=== PATIENT | female | born 1975 | race Caucasian/White ===

== ENCOUNTER 2021-12-04 07:19 | Outpatient (CLI) | payer BC, SELFPAY ==
--- NOTE | ~2021-12-04 | MM_ITS ---
EXAMINATION: MM screening lakeisha BI w marleny HISTORY: Screening TECHNIQUE: Craniocaudal and mediolateral oblique 3-D tomosynthesis images were obtained and synthetic 2-D images were generated. CAD analysis was submitted and interpreted. COMPARISON: No prior mammogram is available for comparison at this institution. BREAST PARENCHYMAL COMPOSITION: Breast composed of scattered areas of fibroglandular density FINDINGS: There is a mass in the lower outer quadrant of the right breast with central lucency. There are asymmetries in the upper outer quadrant of both breasts. There are no suspicious calcifications. IMPRESSION: 1. Right breast mass, lower outer quadrant. Bilateral breast asymmetries upper outer quadrants. 2. Additional mammographic views and possible breast ultrasound are recommended. BI-RADS Category 0: Incomplete: Needs additional imaging evaluation. Reviewed, dictated and finalized at location A. IMPRESSION: 1. Right breast mass, lower outer quadrant. Bilateral breast asymmetries upper outer quadrants. 2. Additional mammographic views and possible breast ultrasound are recommended . BI-RADS Category 0: Incomplete: Needs additional imaging evaluation.
== END 2021-12-04 07:20 | disposition home or self-care (01) ==
LOC: ANHIMG 07:22
PROVIDERS: PCP Internal Medicine; Visit Provider Internal Medicine
DX: Z12.31 Encounter for screening mammogram for malignant neoplasm of breast (principal); R92.8 Other abnormal and inconclusive findings on diagnostic imaging of breast
CPT/HCPCS: 77063; 77067

== ENCOUNTER 2021-12-10 13:04 | Outpatient (CLI) | payer BC, SELFPAY ==
--- NOTE | ~2021-12-10 | MMUS_ITS ---
EXAMINATION: MM diagnostic lakeisha BI w marleny, US breast BI limited HISTORY: Lower outer quadrant right breast mass and bilateral breast asymmetries in upper outer quadr ants were reported on 12/04/2021 bilateral screening mammogram TECHNIQUE: Additional 3-D tomosynthesis images of were performed and synthetic 2-D images were genera nikole. CAD analysis was submitted and interpreted. High resolution bilateral upper outer quadrant and l ower outer quadrant breast ultrasound was performed. COMPARISON: 12/04/2021 bilateral screening mammogram FINDINGS: MAMMOGRAPHIC FINDINGS: Right breast: Circumscribed 7.8 x 12.4 mm mass with halo sign is noted in the inner aspect of the posterior outer q uadrant of the right breast. The mammographic appearance suggests benign process, likely cyst. Left breast: No suspicious mass or architectural distortion is detected mammographically. ULTRASOUND: Right breast: 8:00 5 cm from nipple: 7 x 12 mm sonolucency consistent with cyst, corresponding to the benign-appear ing mammographic finding in the posterior lower outer quadrant of the right breast. Left breast: 2:30 o'clock 6 cm from nipple: There is an anti-parallel irregular hypoechoic lesion measuring up to 5.4 mm depth, 4.5 mm width. The irregular margins and antiparallel configuration are of concern. Nava lissy, there is apparent through transmission and posterior posterior which might suggest cyst. Ultraso und-guided aspiration attempt is recommended, with immediate ultrasound-guided biopsy if this does no t successfully resolve with aspiration. Two contiguous parallel hypoechoic lesions measuring up to 4.2 mm are noted at 3:30 o'clock, without internal vascularity or posterior shadowing, likely benign. IMPRESSION: 1. Mildly irregular anti-parallel sonolucent lesion with apparent through transmission at the left br east 2:00 position 6 cm from nipple 2. Ultrasound-guided aspiration is recommended at left breast 2:00 lesion 6 cm from nipple; if this d oes not successfully with resolved with aspiration, intermediate ultrasound-guided biopsy is recommen ded BI-RADS category 4, suspicious findings. Dr. Campoverde telephoned the report and ultrasound guided left breast aspiration and possible biopsy of le ft breast 2:00 6 cm from nipple on 12/10/[address] Dill. Reviewed, dictated and finalized at location A. IMPRESSION: 1. Mildly irregular anti-parallel sonolucent lesion with apparent through trans mission at the left breast 2:00 position 6 cm from nipple 2. Ultrasound-guided aspiration is recommended at left breast 2:00 lesion 6 cm from nipple; if this does not successfully with resolved with aspiration, inter mediate ultrasound-guided biopsy is recommended BI-RADS category 4, suspicious findings. Dr. Campoverde telephoned the report and ultrasound guided left breast aspiration and possible biopsy of left breast 2:00 6 cm from nipple on 12/10/2021 [address] Dill.
== END 2021-12-10 13:05 | disposition home or self-care (01) ==
LOC: ANHIMG 13:05
PROVIDERS: PCP Internal Medicine; Visit Provider Internal Medicine
DX: R92.8 Other abnormal and inconclusive findings on diagnostic imaging of breast (principal)
CPT/HCPCS: 76642; 77062; 77066; G0279

== ENCOUNTER 2021-12-18 09:58 | Outpatient (CLI) | payer BC, SELFPAY ==
--- NOTE | ~2021-12-18 | US_ITS ---
EXAMINATION: US breast cyst asp LT DATE: 12/18/2021 15:11 CDT INDICATION: Left breast mass identified on prior examination. Aspiration requested. TECHNIQUE: Survey imaging of the left breast was performed. The cyst(s) at the 2:30 position, 6 cm f rom the nipple was targeted for aspiration. The procedure and its risk and benefits were discussed w ith the patient. Risks included but were not limited to pain, bleeding and infection. The patient ve rbalized understanding and provided written consent. A time-out was performed to document the patient's name, date of , and site of procedure. The u pper outer quadrant of the patient's left breast was prepped and draped in usual sterile fashion. 1% lidocaine was used for local anesthesia. Utilizing ultrasound guidance, a 18-gauge needle was advan chano into the lesion in the left breast. Aspiration was performed. A trace amount of clear fluid was obtained with significantly decreased size of cystic mass now measuring 3 x 3 x 3 mm compared with 5 x 5 x 3 mm on prior examination. The patient tolerated procedure without immediate complication. Sterile bandages were applied over t he aspiration site(s).] FINDINGS: Significantly decreased size of cystic mass of the left breast at 2:30 position, 6 cm from the nipple, post aspiration. Short-term follow-up 6 month ultrasound recommended to assess stability. IMPRESSION: 1. Partial resolution of cystic mass of the left breast postaspiration, likely benign. Six-month fol low-up targeted left breast ultrasound recommended. BI-RADS CATEGORY 3-PROBABLY BENIGN FINDING RECOMMENDATION: 6 month follow up recommended. Reviewed, dictated and finalized at location A. IMPRESSION: 1. Partial resolution of cystic mass of the left breast postaspiration, likely benign. Six-month follow-up targeted left breast ultrasound recommended. BI-RADS CATEGORY 3-PROBABLY BENIGN FINDING RECOMMENDATION: 6 month follow up recommended.
== END 2021-12-18 09:59 | disposition home or self-care (01) ==
PROVIDERS: PCP Internal Medicine; Visit Provider Internal Medicine
DX: N60.02 Solitary cyst of left breast (principal)
CPT/HCPCS: 19000

== ENCOUNTER 2022-11-30 07:35 | Outpatient (CLI) | payer BC, SELFPAY ==
--- NOTE | ~2022-11-30 | XR_ITS ---
EXAM: [id number]_[id number] DATE: 11/30/2022 07:50 HISTORY: NECK SPASMS 3 WKS AGO, TINGLING IN LEFT SHOULDER/FINGERS . COMPARISON: None available. FINDINGS: Craniocervical association and atlantoaxial joint are aligned. No prevertebral soft tissue swelling. Minimally reversed lordosis centered at C3-4. Trace anterolistheses at C3-4 through C5-6. Vertebral body heights are maintained. Normal disc spaces. Mild multilevel facet sclerosis and hypert rophy. IMPRESSION: Minimal grade 1 anterolistheses at C3-4 through C5-6, likely on a degenerative basis. Mil d multilevel facet arthropathy. Reviewed, dictated and finalized at location K. IMPRESSION: Minimal grade 1 anterolistheses at C3-4 through C5-6, likely on a d egenerative basis. Mild multilevel facet arthropathy.
== END 2022-11-30 07:36 | disposition home or self-care (01) ==
PROVIDERS: PCP Internal Medicine; Visit Provider Internal Medicine
DX: M54.2 Cervicalgia (principal)
CPT/HCPCS: 72040

== ENCOUNTER 2025-06-29 13:02 | Outpatient (CLI) | payer OTHER, SELFPAY ==
--- NOTE | ~2025-06-29 | CT_ITS ---
EXAMINATION: CT abdomen pelvis wo con DATE: 06/29/2025 13:36 INDICATION: History of kidney stone. TECHNIQUE: Computed tomography (CT) of the abdomen and pelvis was performed without intravenous contrast. Automated exposure control and iterative reconstruction technique were employed. The dose-length product was 494.20 mGy-cm. COMPARISON: No prior imaging studies of the abdomen and pelvis are not available for comparison. FINDINGS: Lung bases do not show acute findings. No focal lesions of liver and spleen. Gallbladder shows no acute findings. Mild hepatomegaly. Tiny intrarenal calculus in the lower calyx of right kidney. No evidence of ureteric calculi or obstruction are seen. No evidence of bladder calculus. Within the pelvis, mild enlargement of left ovary is suggested with 2.5 cm size follicle. No free fluid. IMPRESSION: 1. Limited noncontrast examination is not optimal to evaluate solid viscera, neoplasms and vascular structures. 2. Tiny nonobstructing calculus of right kidney. 3. Mildly enlarged left ovary containing 2.5 cm size follicle. 4. Hepatomegaly. Reviewed, dictated and finalized at location T. ITAL COORDINATOR IMPRESSION: 1. Limited noncontrast examination is not optimal to evaluate solid viscera, ne oplasms and vascular structures. 2. Tiny nonobstructing calculus of right kidney. 3. Mildly enlarged left ovary containing 2.5 cm size follicle. 4. Hepatomegaly.
--- NOTE | ~2025-06-29 | CT_ITS ---
EXAMINATION: CT brain wo con DATE: 06/29/2025 13:36 INDICATION: History of hemorrhagic stroke. TECHNIQUE: Computed tomography (CT) of the head was performed without intravenous contrast. The mA was adjusted according to patient size. Iterative reconstruction technique was employed. The dose-length product was 599.57 mGy-cm. COMPARISON: CT head without contrast dated 04/18/2025. FINDINGS: The hemorrhagic lesion of the left subinsular region noted on 04/18/2025 is showing significant resolution with residual hypodense area. Second hemorrhagic lesion near the vertex in the left parasagittal location parietal lobe is also showing significant resolution. No evidence of subarachnoid bleed is seen at this time. No midline shift. No evidence of effacement of sulci. IMPRESSION: 1. Significant improvement of the hemorrhagic lesions of the left cerebral hemisphere as described above compared with 04/18/2025. Reviewed, dictated and finalized at location T. ET CREASER IMPRESSION: 1. Significant improvement of the hemorrhagic lesions of the left cerebral maylin sphere as described above compared with 04/18/2025.
== END 2025-06-29 13:03 | disposition home or self-care (01) ==
PROVIDERS: PCP Internal Medicine; Visit Provider Family Medicine
DX: I61.9 Nontraumatic intracerebral hemorrhage, unspecified (principal); N20.0 Calculus of kidney; N83.8 Other noninflammatory disorders of ovary, fallopian tube and broad ligament; R16.0 Hepatomegaly, not elsewhere classified
CPT/HCPCS: 70450; 74176